=== PATIENT | female | born 1995 | race Two or more races ===

== ENCOUNTER 2019-09-07 07:44 | Inpatient (IN) | payer OTHER ==
[~2019-09-07] VITALS: Ht 170.2 cm; Wt 84.5 kg
[2019-09-07] MEDS ORDERED: D5%-LACTATED RINGERS 1,000 ML IV SCH (07:50)
[2019-09-07] MEDS ORDERED: OXYTOCIN 30U/ 0.9% NaCL 500ML 500 ML IV ONE (07:50)
[2019-09-07] MEDS ORDERED: LACTATED RINGERS 1,000 ML IV SCH (07:50)
[2019-09-07] MEDS ORDERED: LIDOCAINE 1%, 20ML ONE (07:53)
[2019-09-07] MEDS ORDERED: OXYTOCIN 30U/ 0.9% NaCL 500ML 500 ML ONE ×2 (07:53→09:41)
[2019-09-07] MEDS ORDERED: NEWBORN KIT ONE (07:53)
[2019-09-07] MEDS ORDERED: MISOPROSTOL 200 MCG TABLET ONE (07:53)
[2019-09-07 07:54] VITALS: BP 122/75
[2019-09-07] MEDS ORDERED: ONDANSETRON 2MG/ML, 2ML IVPush PRN (08:00)
[2019-09-07] MEDS ORDERED: SODIUM CHLORIDE FLUSH 10ML SYR IVF PRN (08:00)
[2019-09-07] MEDS ORDERED: FENTANYL PF 100 MCG/2ML IV PRN (08:00)
[2019-09-07] MEDS ORDERED: TERBUTALINE 1 MG/ML, 1ML IVPush PRN (08:00)
[2019-09-07] MEDS ORDERED: TERBUTALINE 1 MG/ML, 1ML SQ PRN (08:00)
[2019-09-07] MEDS ORDERED: FENTANYL PF 100 MCG/2ML IVPush PRN (08:00)
[2019-09-07 08:14] LABS: BASOPHILS # (AUTO) 0.02 x10^3/uL (0-0.1); BASOPHILS % (AUTO) 0 % (0-1); EOSINOPHILS # (AUTO) 0.04 x10^3/uL (0-0.4); EOSINOPHILS % (AUTO) 0 % (1-7); LYMPHOCYTES # (AUTO) 1.42 x10^3/uL (1-3.4); LYMPHOCYTES % (AUTO) 9 % (22-44); MD NO; MEAN CORPUSCULAR HEMOGLOBIN 30.5 pg (27.0-34.8); MEAN CORPUSCULAR HGB CONC 33.8 g/dL (32.4-35.8); MEAN CORPUSCULAR VOLUME 90.1 fL (80-100); MEAN PLATELET VOLUME 8.1 fL (7.4-10.4); MONOCYTES # (AUTO) 0.37 x10^3/uL (0.2-0.8); MONOCYTES % (AUTO) 2 % (2-9); NEUTROPHILS # (AUTO) 14.06 x10^3/uL (1.8-6.8); NEUTROPHILS % (AUTO) 88 % (42-75); PLATELET COUNT 252 x10^3/uL (130-400); RED BLOOD COUNT 4.33 x10^6/uL (3.82-5.3); RED CELL DISTRIBUTION WIDTH 13.8 % (9.6-15.2)
[2019-09-07] MEDS ORDERED: IBUPROFEN 800 MG TABLET ONE (09:41)
[2019-09-07] MEDS: OXYTOCIN 30U/ 0.9% NaCL 500ML 500 ML IV SCH ×2 (09:49→19:44)
[2019-09-07] MEDS ORDERED: ACETAMINOPHEN 325 MG TABLET PO PRN (10:00)
[2019-09-07] MEDS ORDERED: IBUPROFEN 800 MG TABLET PO PRN (10:00)
[2019-09-07] MEDS ORDERED: SIMETHICONE 80 MG CHEW TAB PO PRN (10:00)
[2019-09-07] MEDS ORDERED: OXYcodone/APAP 5/325MG TABLET PO PRN ×2 (10:00)
[2019-09-07] MEDS ORDERED: DOCUSATE 100 MG CAPSULE PO PRN (10:00)
[2019-09-07 11:30] VITALS: BP 127/76
[2019-09-07 16:14] VITALS: BP 122/71
[2019-09-07 16:36] LABS: BASOPHILS # (AUTO) 0.01 x10^3/uL (0-0.1); BASOPHILS % (AUTO) 0 % (0-1); EOSINOPHILS % (AUTO) 0 % (1-7); LYMPHOCYTES # (AUTO) 1.09 x10^3/uL (1-3.4); LYMPHOCYTES % (AUTO) 6 % (22-44); MD SCAN; MEAN CORPUSCULAR HEMOGLOBIN 30.6 pg (27.0-34.8); MEAN CORPUSCULAR VOLUME 89.8 fL (80-100); MEAN PLATELET VOLUME 8.7 fL (7.4-10.4); MONOCYTES # (AUTO) 0.92 x10^3/uL (0.2-0.8); MONOCYTES % (AUTO) 5 % (2-9); NEUTROPHILS # (AUTO) 17.95 x10^3/uL (1.8-6.8); NEUTROPHILS % (AUTO) 90 % (42-75); PLATELET COUNT 237 x10^3/uL (130-400); RED BLOOD COUNT 3.61 x10^6/uL (3.82-5.3); RED CELL DISTRIBUTION WIDTH 13.5 % (9.6-15.2)
[2019-09-07 20:30] VITALS: BP 121/72
[2019-09-08 01:45] VITALS: BP 101/66
[2019-09-08 05:05] VITALS: BP 106/69
[2019-09-08] MEDS: OXYTOCIN 30U/ 0.9% NaCL 500ML 500 ML IV SCH (05:44)
[2019-09-08 07:25] VITALS: BP 113/74
[2019-09-08] MEDS: PRENATAL VIT/IRON/FA 1 EACH TABLET PO SCH ×2 (09:00→09:14)
[2019-09-08] MEDS ORDERED: IBUP-1222 PO (12:50)
== END 2019-09-08 14:45 | disposition home or self-care (01) | DRG 807 ==
LOC: LDIP 07:44 → 2NW 11:03
PROVIDERS: ADMIT Obstetrics & Gynecology; ATTEND Obstetrics & Gynecology
PROC: 10E0XZZ Delivery of Products of Conception, External Approach (ICD-10-PCS; principal; 2019-09-07)
PROC: 0KQM0ZZ Repair Perineum Muscle, Open Approach (ICD-10-PCS; 2019-09-07)
DX: O70.1 Second degree perineal laceration during delivery (principal); Z37.0 Single live birth; Z3A.39 39 weeks gestation of pregnancy
CPT/HCPCS: 36415; 85025; 86592; 86850; 86900; G0378; J2590; J7120

== ENCOUNTER 2020-01-21 19:52 | Emergency (ER) | payer SELFPAY ==
[~2020-01-21] VITALS: Ht 170.2 cm; Wt 77.7 kg
[~2020-01-21 19:52] MED LIST: IBUP-1222 PO
--- NOTE | 2020-01-21 20:23 | NUR ---
THIS IS A 24Y F THAT COMES IN FOR RUQ PAIN X3DAYS W/ SOME NAUSEA. PT STS THIS HAPPENED A FEW MONTHS AGO AND WENT AWAY, HOWEVER THIS TIME NOT GOING AWAY THIS TIME. PT CONNECTED TO MONITORING VSS, URINE SENT TO LAB. PA AT BEDSIDE FOR ASSESSMENT
[2020-01-21 21:00] LABS: BASOPHILS # (AUTO) 0.04 x10^3/uL (0-0.1); BASOPHILS % (AUTO) 1 % (0-1); EOSINOPHILS # (AUTO) 0.22 x10^3/uL (0-0.4); EOSINOPHILS % (AUTO) 3 % (1-7); LYMPHOCYTES # (AUTO) 1.68 x10^3/uL (1-3.4); LYMPHOCYTES % (AUTO) 24 % (22-44); MD NO; MEAN CORPUSCULAR HEMOGLOBIN 29.2 pg (27.0-34.8); MEAN CORPUSCULAR HGB CONC 33.2 g/dL (32.4-35.8); MEAN CORPUSCULAR VOLUME 87.8 fL (80-100); MEAN PLATELET VOLUME 8.4 fL (7.4-10.4); MONOCYTES # (AUTO) 0.47 x10^3/uL (0.2-0.8); MONOCYTES % (AUTO) 7 % (2-9); NEUTROPHILS # (AUTO) 4.74 x10^3/uL (1.8-6.8); NEUTROPHILS % (AUTO) 66 % (42-75); PLATELET COUNT 243 x10^3/uL (130-400); RED BLOOD COUNT 4.27 x10^6/uL (3.82-5.3); RED CELL DISTRIBUTION WIDTH 15.1 % (9.6-15.2)
[2020-01-21 21:09] LABS: ALANINE AMINOTRANSFERASE 507 U/L (12-78); ALBUMIN 3.6 g/dL (3.4-5.0); ANION GAP 3 mmol/L (5-15); CALCIUM 8.4 mg/dL (8.5-10.1); CHLORIDE 110 mmol/L (98-107); CREATININE 0.75 mg/dL (0.55-1.02)
[2020-01-21 21:13] LABS: ALKALINE PHOSPHATASE 263 U/L (45-117); BILIRUBIN,TOTAL 1.8 mg/dL (0.2-1.0); TOTAL PROTEIN 7.2 g/dL (6.4-8.2)
[2020-01-21 21:28] LABS: MICROSCOPIC INDICATED
[2020-01-21 22:01] VITALS: BP 112/59
--- NOTE | 2020-01-21 22:02 | NUR ---
PT RESTING ON OKSANA SEPULVEDA STS SHE FEELS A BIT BETTER AND HER PAIN COMES AND DOES. PT DENIES NEEDS AT THIS TIME
== END 2020-01-21 23:41 | disposition home or self-care (01) ==
LOC: ED 21:23
DX: K80.20 Calculus of gallbladder without cholecystitis without obstruction (principal)
CPT/HCPCS: 36415; 76700; 80053; 81001; 83690; 84703; 85025; 99284